=== PATIENT | female | born 1950 | race Caucasian/White ===

== ENCOUNTER 2021-01-14 09:45 | Emergency (ER) | payer MEDICARE, OTHER ==
[~2021-01-14] VITALS: Ht 162.6 cm; Wt 50.0 kg
[~2021-01-14 09:45] MED LIST: ACCUPRIL5 MG PO; ALORA0.1 MG TD; FOSAMAX PLUS PO; NAPROSYN500 MG PO
[2021-01-14 10:08] LABS: GFR > 60 ML/MIN (>=60 (CALC)); GFR FOR AFR.AMER. > 60 ML/MIN (>=60 (CALC))
[2021-01-14 10:14] LABS: HEMATOCRIT 42.2 % (37.0-47.0); HEMOGLOBIN 13.6 g/dl (12.0-16.0); IMMATURE GRANULOCYTES 0.1 % (0.0-5.0); MEAN CELL VOLUME 86.8 fL CALC (80.0-100.0); MEAN CORPUSCULAR HGB CONC 32.2 g/dL CAL (32.0-36.0); NEUT# 4.66 thou/uL (2.00-7.15); RED BLOOD COUNT 4.86 mill/uL (4.20-5.60); RED CELL DISTRI WIDTH 16.8 % (11.5-15.5)
[2021-01-14 10:27] LABS: ALKALINE PHOSPHATASE 94 u/l (38-126); ANION GAP 10 (6-22 (CALC)); BILIRUBIN, TOTAL 0.6 mg/dL (0.0-1.4); BUN 18 mg/dL (8-23); BUN/CREATININE RATIO 24 (12-20 (CALC)); CARBON DIOXIDE 25 mmol/l (22-30); CHLORIDE 105 mmol/l (95-108); CREATININE 0.8 mg/dL (0.5-1.0); GFR > 60 ML/MIN (>=60 (CALC)); GFR FOR AFR.AMER. > 60 ML/MIN (>=60 (CALC)); POTASSIUM 4.4 mmol/l (3.5-5.1); SGOT/AST 22 u/l (9-36); SODIUM 136 mmol/l (137-146); TOTAL PROTEIN 7.4 g/dL (6.3-8.2)
[2021-01-14 11:39] VITALS: BP 152/75
== END 2021-01-14 11:53 | disposition left against medical advice (07) ==
LOC: ED 09:45 → ED-I 11:17 → ED 11:53
PROVIDERS: Family Medicine
DX: R07.9 Chest pain, unspecified (principal); U07.1 COVID-19; Z91.19 Patient's noncompliance with other medical treatment and regimen
CPT/HCPCS: Q9967

== ENCOUNTER 2022-04-01 10:21 | Day surgery (SDC) | payer MEDICARE, OTHER ==
[~2022-04-01 10:21] MED LIST changes: +ALLEGRA ALLERGY60 MG PO; +ATORVASTATIN CA10 MG PO; +BIOTIN10 M1 PO; +SINGULAIR10 MG PO
[2022-04-01 14:37] VITALS: BP 169/86
== END 2022-04-01 14:45 | disposition home or self-care (01) ==
LOC: ENDO 10:21 → ORM 14:10 → ENDO 14:45 → ORM 15:30
PROVIDERS: ATTEND Internal Medicine Gastroenterology
PROC: 0DBM8ZX Excision of Descending Colon, Via Natural or Artificial Opening Endoscopic, Diagnostic (ICD-10-PCS; principal; 2022-04-01)
PROC: 0DB98ZX Excision of Duodenum, Via Natural or Artificial Opening Endoscopic, Diagnostic (ICD-10-PCS; 2022-04-01)
PROC: 0DB78ZX Excision of Stomach, Pylorus, Via Natural or Artificial Opening Endoscopic, Diagnostic (ICD-10-PCS; 2022-04-01)
PROC: 0DB48ZX Excision of Esophagogastric Junction, Via Natural or Artificial Opening Endoscopic, Diagnostic (ICD-10-PCS; 2022-04-01)
DX: K62.5 Hemorrhage of anus and rectum (principal); K57.30 Diverticulosis of large intestine without perforation or abscess without bleeding; K63.5 Polyp of colon; K64.8 Other hemorrhoids; K44.9 Diaphragmatic hernia without obstruction or gangrene; K21.00 Gastro-esophageal reflux disease with esophagitis, without bleeding

== ENCOUNTER 2022-05-01 09:35 | Inpatient (IN) | payer MEDICARE, OTHER ==
[2022-05-01] VITALS (118 sets, daily range): BP systolic 95–202; BP diastolic 52–96
[~2022-05-01] VITALS: Ht 162.6 cm; Wt 56.8 kg
[2022-05-01 10:09] LABS: BASO% 0.6 % (0-3); IMMATURE GRANULOCYTES 0.1 % (0.0-5.0); LYMPH% 25.5 % (15-41); MEAN CELL VOLUME 90.9 fL CALC (80.0-100.0); MEAN CORPUSCULAR HGB 30.4 pG CALC (26.0-32.0); MEAN CORPUSCULAR HGB CONC 33.4 g/dL CAL (32.0-36.0); MONO% 8.5 % (2-13); NEUT# 4.61 thou/uL (2.00-7.15); NEUT% 64.3 % (42-76); RED BLOOD COUNT 3.75 mill/uL (4.20-5.60)
[2022-05-01 10:11] LABS: HEMATOCRIT 34.1 % (37.0-47.0); HEMOGLOBIN 11.4 g/dl (12.0-16.0)
[2022-05-01 10:17] LABS: PROTHROMBIN TIME 9.6 SECONDS (9.0-12.5)
[2022-05-01 10:21] LABS: ALBUMIN 4.1 g/dL (3.2-5.0); ALKALINE PHOSPHATASE 74 u/l (38-126); ANION GAP 10 (6-22 (CALC)); BILIRUBIN, TOTAL 0.4 mg/dL (0.0-1.4); BUN 21 mg/dL (8-23); BUN/CREATININE RATIO 25 (12-20 (CALC)); CARBON DIOXIDE 24 mmol/l (22-30); CHLORIDE 107 mmol/l (95-108); CREATININE 0.9 mg/dL (0.5-1.0); GFR FOR AFR.AMER. > 60 ML/MIN (>=60 (CALC)); GFR OTHER RACES > 60 ML/MIN (>=60 (CALC)); POTASSIUM 4.5 mmol/l (3.5-5.1); SGOT/AST 29 u/l (9-36); SODIUM 136 mmol/l (137-146); TOTAL PROTEIN 7.1 g/dL (6.3-8.2)
[2022-05-01 11:52] LABS: URINE BILIRUBIN - DIPSTICK NEGATIVE (NEGATIVE); URINE BLOOD DIPSTICK NEGATIVE (NEGATIVE); URINE GLUCOSE - DIPSTICK NEGATIVE (NEGATIVE); URINE KETONE NEGATIVE (NEGATIVE); URINE LEUK ESTERASE NEGATIVE (NEGATIVE); URINE PH 7.5 (4.5-8.0); URINE PROTEIN - DIPSTICK NEGATIVE (NEG-TRACE); URINE SPECIFIC GRAVITY <=1.005; URINE UROBILINOGEN - DIPSTICK 0.2 E.U./dL (0.2)
[2022-05-01 11:54] LABS: URINE COLOR STRAW; URINE NITRITE - DIPSTICK NEGATIVE (Negative)
[2022-05-02] VITALS (15 sets, daily range): BP systolic 93–146; BP diastolic 45–66
[2022-05-02 13:46] LABS: BASO% 0.3 % (0-3); EOS% 0.9 % (0-8); HEMATOCRIT 34.3 % (37.0-47.0); HEMOGLOBIN 11.2 g/dl (12.0-16.0); IMMATURE GRANULOCYTES 0.1 % (0.0-5.0); LYMPH% 22.3 % (15-41); MEAN CELL VOLUME 90.7 fL CALC (80.0-100.0); MEAN CORPUSCULAR HGB 29.6 pG CALC (26.0-32.0); MEAN CORPUSCULAR HGB CONC 32.7 g/dL CAL (32.0-36.0); MONO% 7.4 % (2-13); NEUT# 4.74 thou/uL (2.00-7.15); RED BLOOD COUNT 3.78 mill/uL (4.20-5.60); RED CELL DISTRI WIDTH 15.2 % (11.5-15.5)
[2022-05-02 14:03] LABS: ALBUMIN 3.6 g/dL (3.2-5.0); ALKALINE PHOSPHATASE 60 u/l (38-126); ANION GAP 10 (6-22 (CALC)); BILIRUBIN, TOTAL 0.2 mg/dL (0.0-1.4); BUN 15 mg/dL (8-23); BUN/CREATININE RATIO 17 (12-20 (CALC)); CARBON DIOXIDE 23 mmol/l (22-30); CHLORIDE 109 mmol/l (95-108); CREATININE 0.9 mg/dL (0.5-1.0); GFR FOR AFR.AMER. > 60 ML/MIN (>=60 (CALC)); GFR OTHER RACES > 60 ML/MIN (>=60 (CALC)); POTASSIUM 4.2 mmol/l (3.5-5.1); SGOT/AST 29 u/l (9-36); SODIUM 138 mmol/l (137-146); TOTAL PROTEIN 6.3 g/dL (6.3-8.2)
[2022-05-03] VITALS (8 sets, daily range): BP systolic 96–149; BP diastolic 41–74
[2022-05-03 05:55] LABS: BASO% 0.7 % (0-3); EOS% 2.5 % (0-8); HEMATOCRIT 32.4 % (37.0-47.0); HEMOGLOBIN 11.4 g/dl (12.0-16.0); IMMATURE GRANULOCYTES 0.2 % (0.0-5.0); LYMPH% 30.2 % (15-41); MEAN CELL VOLUME 90.3 fL CALC (80.0-100.0); MEAN CORPUSCULAR HGB 31.8 pG CALC (26.0-32.0); MEAN CORPUSCULAR HGB CONC 35.2 g/dL CAL (32.0-36.0); MONO% 11.6 % (2-13); NEUT# 3.13 thou/uL (2.00-7.15); NEUT% 54.8 % (42-76); RED BLOOD COUNT 3.59 mill/uL (4.20-5.60); RED CELL DISTRI WIDTH 15.2 % (11.5-15.5)
[2022-05-03 06:02] LABS: ALBUMIN 3.3 g/dL (3.2-5.0); ALKALINE PHOSPHATASE 52 u/l (38-126); ANION GAP 7 (6-22 (CALC)); BILIRUBIN, TOTAL 0.2 mg/dL (0.0-1.4); BUN 16 mg/dL (8-23); BUN/CREATININE RATIO 22 (12-20 (CALC)); CARBON DIOXIDE 25 mmol/l (22-30); CHLORIDE 109 mmol/l (95-108); CREATININE 0.7 mg/dL (0.5-1.0); GFR FOR AFR.AMER. > 60 ML/MIN (>=60 (CALC)); GFR OTHER RACES > 60 ML/MIN (>=60 (CALC)); POTASSIUM 4.2 mmol/l (3.5-5.1); SGOT/AST 23 u/l (9-36); SODIUM 137 mmol/l (137-146); TOTAL PROTEIN 6.1 g/dL (6.3-8.2)
[2022-05-04] VITALS (8 sets, daily range): BP systolic 107–166; BP diastolic 34–68
[2022-05-04] MEDS ORDERED: ASPIRIN81 MG PO (12:01)
[2022-05-04] MEDS ORDERED: PLAVIX75 MG PO (12:01)
[2022-05-04] MEDS ORDERED: LEXAPRO10 MG PO (12:01)
[2022-05-04] MEDS ORDERED: ATORVASTATIN CA40 MG PO (12:01)
[2022-05-04] MEDS ORDERED: LORAZEPAM0.5 MG PO (12:02)
[2022-05-04] MEDS ORDERED: PEPCID20 MG PO (12:02)
[2022-05-05 00:08] VITALS: BP 117/49
[2022-05-05 04:00] VITALS: BP 139/62
[2022-05-05 04:52] VITALS: BP 139/62
[2022-05-05 05:06] LABS: BASO% 0.7 % (0-3); EOS% 2.2 % (0-8); HEMATOCRIT 32.4 % (37.0-47.0); HEMOGLOBIN 10.6 g/dl (12.0-16.0); LYMPH% 31.4 % (15-41); MEAN CELL VOLUME 91.5 fL CALC (80.0-100.0); MEAN CORPUSCULAR HGB 29.9 pG CALC (26.0-32.0); MEAN CORPUSCULAR HGB CONC 32.7 g/dL CAL (32.0-36.0); MONO% 10.8 % (2-13); NEUT# 3.04 thou/uL (2.00-7.15); NEUT% 54.9 % (42-76); RED BLOOD COUNT 3.54 mill/uL (4.20-5.60)
[2022-05-05 05:17] LABS: ALBUMIN 3.2 g/dL (3.2-5.0); ALKALINE PHOSPHATASE 48 u/l (38-126); ANION GAP 8 (6-22 (CALC)); BUN 16 mg/dL (8-23); BUN/CREATININE RATIO 20 (12-20 (CALC)); CARBON DIOXIDE 24 mmol/l (22-30); CHLORIDE 109 mmol/l (95-108); CREATININE 0.8 mg/dL (0.5-1.0); GFR FOR AFR.AMER. > 60 ML/MIN (>=60 (CALC)); GFR OTHER RACES > 60 ML/MIN (>=60 (CALC)); POTASSIUM 4.3 mmol/l (3.5-5.1); SGOT/AST 25 u/l (9-36); SODIUM 136 mmol/l (137-146); TOTAL PROTEIN 5.9 g/dL (6.3-8.2)
[2022-05-05 05:18] LABS: BILIRUBIN, TOTAL 0.3 mg/dL (0.0-1.4)
[2022-05-05 06:49] VITALS: BP 137/62
== END 2022-05-05 12:30 | DRG 62 ==
LOC: ED 09:35 → ED-I 11:01 → ED 12:25 → ICU 12:26 → MS2 05-03 14:56
PROVIDERS: Family Medicine; Internal Medicine; Nurse Practitioner Family; ADMIT Internal Medicine; ATTEND Internal Medicine
DX: I63.9 Cerebral infarction, unspecified (principal); G81.94 Hemiplegia, unspecified affecting left nondominant side; R29.709 NIHSS score 9; R47.1 Dysarthria and anarthria; R47.01 Aphasia; R29.810 Facial weakness; R20.8 Other disturbances of skin sensation; R41.0 Disorientation, unspecified; R09.89 Other specified symptoms and signs involving the circulatory and respiratory systems; F32.A Depression, unspecified
CPT/HCPCS: J3101; Q9967

== ENCOUNTER 2022-05-22 03:01 | Observation (INO) | payer MEDICARE, OTHER ==
[2022-05-22] VITALS (9 sets, daily range): BP systolic 108–145; BP diastolic 40–79
[~2022-05-22] VITALS: Ht 162.6 cm; Wt 57.0 kg
[~2022-05-22 03:01] MED LIST changes: +ASPIRIN81 MG PO; +ATORVASTATIN CA40 MG PO; +LEXAPRO10 MG PO; +LORAZEPAM0.5 MG PO; +PEPCID20 MG PO; +PLAVIX75 MG PO
--- NOTE | 2022-05-22 04:30 | NUR ---
PATIENT ARRIVED VIA EMS. PROVIDER AWARE OF STATUS.
[2022-05-22 05:01] LABS: BASO% 0.2 % (0-3); EOS% 0.2 % (0-8); HEMATOCRIT 35.8 % (37.0-47.0); HEMOGLOBIN 11.2 g/dl (12.0-16.0); IMMATURE GRANULOCYTES 0.3 % (0.0-5.0); LYMPH% 7.6 % (15-41); MEAN CELL VOLUME 89.3 fL CALC (80.0-100.0); MEAN CORPUSCULAR HGB 27.9 pG CALC (26.0-32.0); MEAN CORPUSCULAR HGB CONC 31.3 g/dL CAL (32.0-36.0); MONO% 5.4 % (2-13); NEUT# 10.77 thou/uL (2.00-7.15); NEUT% 86.3 % (42-76); RED BLOOD COUNT 4.01 mill/uL (4.20-5.60); RED CELL DISTRI WIDTH 13.9 % (11.5-15.5)
[2022-05-22 05:16] LABS: ALBUMIN 4.3 g/dL (3.2-5.0); ALKALINE PHOSPHATASE 58 u/l (38-126); ANION GAP 8 (6-22 (CALC)); BILIRUBIN, TOTAL 0.1 mg/dL (0.02-1.3); BUN 16 mg/dL (8-23); BUN/CREATININE RATIO 20 (12-20 (CALC)); CARBON DIOXIDE 28 mmol/l (22-30); CHLORIDE 107 mmol/l (95-108); CREATININE 0.8 mg/dL (0.5-1.0); GFR FOR AFR.AMER. > 60 ML/MIN (>=60 (CALC)); GFR OTHER RACES > 60 ML/MIN (>=60 (CALC)); POTASSIUM 4.3 mmol/l (3.5-5.1); SGOT/AST 44 u/l (9-36); SODIUM 139 mmol/l (137-146); TOTAL PROTEIN 7.2 g/dL (6.3-8.2)
--- NOTE | 2022-05-22 05:31 | NUR ---
PATIENT PENDING ADMISSION.
[2022-05-22] MEDS ORDERED: TELMISARTAN40 MG PO (05:50)
[2022-05-22] MEDS ORDERED: TRAZODONE50 MG PO (05:50)
--- NOTE | 2022-05-22 06:37 | NUR ---
REPORT GIVEN TO MS. PATIENT TAKEN TO ROOM 280.
--- NOTE | 2022-05-22 06:45 | NUR ---
RECEIVED PATIENT FROM ED VIA STRETCHER @ [id number]. BEDSIDE REPORT RECEIVED FROM ED RN. PT IS A&0X3. PT IS ABLE TO VERBALIZED NEEDS. PT ASKED FOR CLARK Solis RN TO BE NOTIFIED THAT SHE WAS ADMITTED, SHE HAD 2 STROKES WITHIN THE PAST MONTH WITH TPA ADMINISTERED. PT COMPLAINS OF PAIN TO THE LEFT RIBS, HAS 5TH RIB FRACTURED, REQUESTING PAIN MEDS, WITH PAIN LEVEL AT A 9. ADMITTED FOR FALL AT HOME, LACERATION TO FORHEAD ABOVE RIGHT EYE AND RIB FRACTURED. PT IS ON ROOM AIR, BREATHING EVEN AND UNLABORED. TELEMETRY IN PLACE, MONITORED BY ED. TRANSFERED PT TO BED, POSITIONED IN LOW SEMI-GANDARA'S POSITION. ORIENTED PT TO ROOM AND CALL LIGHT. EDUCATION PROVIDED ON FALL PREVENTION. PT VERBALIZED UNDERSTANDING. CALL LIGHT AND BEDSIDE TABLE WITHIN REACH. SAFETY PRECAUTIONS IN PLACE.
--- NOTE | 2022-05-22 09:05 | NUR ---
verbal order received for pain medication at this time. faxed to pharmacy.
--- NOTE | 2022-05-22 12:07 | NUR ---
PT RESTING IN BED. NO APPARENT DISTRESS NOTED. CALL LIGHT WITHIN REACH. WILL CONTINUE TO MONITOR.
[2022-05-22 13:12] LABS: URINE BILIRUBIN - DIPSTICK NEGATIVE (NEGATIVE); URINE BLOOD DIPSTICK LARGE (NEGATIVE); URINE COLOR YELLOW; URINE GLUCOSE - DIPSTICK NEGATIVE (NEGATIVE); URINE KETONE NEGATIVE (NEGATIVE); URINE LEUK ESTERASE NEGATIVE (NEGATIVE); URINE PROTEIN - DIPSTICK NEGATIVE (NEG-TRACE); URINE SPECIFIC GRAVITY 1.015; URINE UROBILINOGEN - DIPSTICK 0.2 E.U./dL (0.2)
[2022-05-22 13:28] LABS: URINE NITRITE - DIPSTICK NEGATIVE (Negative)
[2022-05-22 13:37] LABS: URINE BACTERIA FEW hpf; URINE RBC 50-100 RBC/hpf (0-5); URINE SQUAMOUS EPITHELIAL CELL FEW EPI/hpf (0-FEW)
--- NOTE | 2022-05-22 16:00 | NUR ---
ORTHOSTATIC VS OBTAINED. NOTIFIED [facility] AT THIS TIME.
--- NOTE | 2022-05-22 22:00 | NUR ---
ASSISTED PATIENT IN THE BEDSIDE COMMODE. INSTRUCTED NOT TO GET UP ON HER OWN. BED ALRM IN PLACED.
--- NOTE | 2022-05-23 | NUR ---
RESTING IN BED. SELF TURNED. NO S/S OF DISTRESS NOTED. BED ALARM REMAIN IN PLACED.
[2022-05-23 02:11] VITALS: BP 153/71
[2022-05-23 04:19] VITALS: BP 124/62
[2022-05-23 04:58] VITALS: BP 134/69
[2022-05-23 05:00] VITALS: BP 139/75; BP 143/79
[2022-05-23 06:05] LABS: BASO% 0.4 % (0-3); EOS% 0.8 % (0-8); HEMATOCRIT 36.4 % (37.0-47.0); HEMOGLOBIN 11.4 g/dl (12.0-16.0); IMMATURE GRANULOCYTES 0.1 % (0.0-5.0); LYMPH% 28.7 % (15-41); MEAN CELL VOLUME 91.2 fL CALC (80.0-100.0); MEAN CORPUSCULAR HGB 28.6 pG CALC (26.0-32.0); MEAN CORPUSCULAR HGB CONC 31.3 g/dL CAL (32.0-36.0); MONO% 9.9 % (2-13); NEUT# 6.03 thou/uL (2.00-7.15); NEUT% 60.1 % (42-76); RED BLOOD COUNT 3.99 mill/uL (4.20-5.60); RED CELL DISTRI WIDTH 14.2 % (11.5-15.5)
[2022-05-23 06:37] LABS: ALBUMIN 3.9 g/dL (3.2-5.0); ALKALINE PHOSPHATASE 60 u/l (38-126); ANION GAP 12 (6-22 (CALC)); BILIRUBIN, TOTAL 0.4 mg/dL (0.02-1.3); BUN 12 mg/dL (8-23); BUN/CREATININE RATIO 18 (12-20 (CALC)); CARBON DIOXIDE 22 mmol/l (22-30); CHLORIDE 109 mmol/l (95-108); CREATININE 0.7 mg/dL (0.5-1.0); GFR FOR AFR.AMER. > 60 ML/MIN (>=60 (CALC)); GFR OTHER RACES > 60 ML/MIN (>=60 (CALC)); POTASSIUM 3.7 mmol/l (3.5-5.1); SGOT/AST 34 u/l (9-36); SODIUM 139 mmol/l (137-146); TOTAL PROTEIN 6.7 g/dL (6.3-8.2)
[2022-05-23 07:00] VITALS: BP 154/78
--- NOTE | 2022-05-23 07:43 | NUR ---
VITAL SIGNS STABLE. PT IN PAIN, STATES SHE WANTS PAIN MED A LITTLE WEAKER THAN MORPHINE. DR DAWKINS NOTIFIED. HE PUT IN ORDER FOR PRN LORBAB. WAITING FOR PHARMACY TO PUT IN ORDER.
[2022-05-23] MEDS ORDERED: LORTAB5 PO (11:25)
[2022-05-23 12:12] VITALS: BP 146/70
--- NOTE | 2022-05-23 13:41 | NUR ---
DC INSTRUCTIONS GIVEN. MEDICATION INSTRUCTIONS GIVEN. ICS GIVEN. IV DCED. TELE DCED. PT TAKEN TO CAR IN WC BY ME.
== END 2022-05-23 13:30 | disposition home health service (06) ==
LOC: ED 03:01 → ED-I 04:35 → ED 05:31 → MS2 05:32
PROVIDERS: Emergency Medicine; Nurse Practitioner Family; ADMIT Internal Medicine; ATTEND Internal Medicine
PROC: 0HQ1XZZ Repair Face Skin, External Approach (ICD-10-PCS; principal; 2022-05-22)
DX: R55 Syncope and collapse (principal); R42 Dizziness and giddiness; I95.1 Orthostatic hypotension; S01.81XA Laceration without foreign body of other part of head, initial encounter; S22.32XA Fracture of one rib, left side, initial encounter for closed fracture; I10 Essential (primary) hypertension; E78.5 Hyperlipidemia, unspecified; W19.XXXA Unspecified fall, initial encounter; Y92.009 Unspecified place in unspecified non-institutional (private) residence as the place of occurrence of the external cause; Z86.73 Personal history of transient ischemic attack (TIA), and cerebral infarction without residual deficits
CPT/HCPCS: J1650

== ENCOUNTER 2022-11-02 11:20 | Observation (INO) | payer MEDICARE, OTHER ==
[~2022-11-02] VITALS: Ht 162.6 cm; Wt 61.7 kg
[2022-11-02] VITALS (33 sets, daily range): BP systolic 114–166; BP diastolic 43–82
[~2022-11-02 11:20] MED LIST changes: +COQ-10100 MG PO; +COZAAR25 MG PO; +ESTROVE1 PO; +LORTAB5 PO; +ROPINIROLE0.5 MG PO; +TELMISARTAN40 MG PO; +TRAZODONE50 MG PO; +VITAMIN B COMPL1 CAP; +ZYRTEC10 M3 PO
[2022-11-02 11:55] LABS: ALBUMIN 4.5 g/dL (3.2-5.0); ALKALINE PHOSPHATASE 101 u/l (38-126); ANION GAP 13 (6-22 (CALC)); BUN 12 mg/dL (8-23); BUN/CREATININE RATIO 14 (12-20 (CALC)); CARBON DIOXIDE 24 mmol/l (22-30); CHLORIDE 102 mmol/l (95-108); CREATININE 0.8 mg/dL (0.5-1.0); GFR FOR AFR.AMER. > 60 ML/MIN (>=60 (CALC)); GFR OTHER RACES > 60 ML/MIN (>=60 (CALC)); POTASSIUM 4.5 mmol/l (3.5-5.1); SGOT/AST 38 u/l (9-36); SODIUM 135 mmol/l (137-146); TOTAL PROTEIN 7.4 g/dL (6.3-8.2)
[2022-11-02 11:56] LABS: BILIRUBIN, TOTAL 0.4 mg/dL (0.02-1.3)
[2022-11-02 11:57] LABS: BASO% 0.7 % (0-3); EOS% 2.2 % (0-8); HEMATOCRIT 44.4 % (37.0-47.0); IMMATURE GRANULOCYTES 0.1 % (0.0-5.0); LYMPH% 30.6 % (15-41); MEAN CELL VOLUME 90.6 fL CALC (80.0-100.0); MEAN CORPUSCULAR HGB 28.6 pG CALC (26.0-32.0); MEAN CORPUSCULAR HGB CONC 31.5 g/dL CAL (32.0-36.0); MONO% 11.5 % (2-13); NEUT# 3.97 thou/uL (2.00-7.15); NEUT% 54.9 % (42-76); RED BLOOD COUNT 4.9 mill/uL (4.20-5.60); RED CELL DISTRI WIDTH 14.8 % (11.5-15.5)
[2022-11-02 12:01] LABS: PROTHROMBIN TIME 9.9 SECONDS (9.0-12.5)
[2022-11-02] MEDS ORDERED: ESCITALOPRAM OX10 MG PO (13:12)
[2022-11-02] MEDS ORDERED: RIZATRIPTAN BEN10 MG (13:12)
[2022-11-02] MEDS ORDERED: LEXAPRO10 MG PO (15:29)
[2022-11-02] MEDS ORDERED: ATORVASTATIN CA10 MG PO (15:30)
[2022-11-02] MEDS ORDERED: ZYRTEC10 MG PO (15:30)
[2022-11-03] VITALS (27 sets, daily range): BP systolic 82–148; BP diastolic 34–93
[2022-11-03 05:38] LABS: BASO% 0.7 % (0-3); EOS% 4.2 % (0-8); HEMATOCRIT 43.2 % (37.0-47.0); HEMOGLOBIN 13.8 g/dl (12.0-16.0); LYMPH% 27.6 % (15-41); MEAN CELL VOLUME 90.2 fL CALC (80.0-100.0); MEAN CORPUSCULAR HGB 28.8 pG CALC (26.0-32.0); MEAN CORPUSCULAR HGB CONC 31.9 g/dL CAL (32.0-36.0); MONO% 11.5 % (2-13); NEUT# 3.17 thou/uL (2.00-7.15); RED BLOOD COUNT 4.79 mill/uL (4.20-5.60); RED CELL DISTRI WIDTH 14.7 % (11.5-15.5)
[2022-11-03 05:43] LABS: ALBUMIN 3.7 g/dL (3.2-5.0); ALKALINE PHOSPHATASE 68 u/l (38-126); ANION GAP 10 (6-22 (CALC)); BILIRUBIN, TOTAL 0.5 mg/dL (0.02-1.3); BUN 13 mg/dL (8-23); BUN/CREATININE RATIO 17 (12-20 (CALC)); CARBON DIOXIDE 26 mmol/l (22-30); CHLORIDE 106 mmol/l (95-108); CREATININE 0.8 mg/dL (0.5-1.0); GFR FOR AFR.AMER. > 60 ML/MIN (>=60 (CALC)); GFR OTHER RACES > 60 ML/MIN (>=60 (CALC)); POTASSIUM 4.4 mmol/l (3.5-5.1); SGOT/AST 28 u/l (9-36); SODIUM 138 mmol/l (137-146)
== END 2022-11-03 18:20 | disposition home health service (06) ==
LOC: ED 11:20 → ICU 13:43
PROVIDERS: Family Medicine; ADMIT Internal Medicine; ATTEND Internal Medicine
DX: R53.1 Weakness (principal); R56.9 Unspecified convulsions; I69.954 Hemiplegia and hemiparesis following unspecified cerebrovascular disease affecting left non-dominant side; R00.1 Bradycardia, unspecified; I10 Essential (primary) hypertension; E78.5 Hyperlipidemia, unspecified; F32.A Depression, unspecified; G43.109 Migraine with aura, not intractable, without status migrainosus; F41.9 Anxiety disorder, unspecified; G25.81 Restless legs syndrome; Z79.82 Long term (current) use of aspirin
CPT/HCPCS: J2060; Q9967

== ENCOUNTER 2022-11-27 10:35 | Observation (INO) | payer MEDICARE, OTHER ==
[~2022-11-27] VITALS: Ht 162.6 cm; Wt 59.0 kg
[2022-11-27] VITALS (16 sets, daily range): BP systolic 136–171; BP diastolic 68–87
[~2022-11-27 10:35] MED LIST changes: +ESCITALOPRAM OX10 MG PO; +RIZATRIPTAN BEN10 MG; +ZYRTEC10 MG PO
[2022-11-27 11:01] LABS: BASO% 0.6 % (0-3); EOS% 1.4 % (0-8); HEMOGLOBIN 14.1 g/dl (12.0-16.0); IMMATURE GRANULOCYTES 0.1 % (0.0-5.0); LYMPH% 28.5 % (15-41); MEAN CELL VOLUME 92.2 fL CALC (80.0-100.0); MEAN CORPUSCULAR HGB 29.6 pG CALC (26.0-32.0); MONO% 10.8 % (2-13); NEUT# 4.21 thou/uL (2.00-7.15); NEUT% 58.6 % (42-76); RED BLOOD COUNT 4.77 mill/uL (4.20-5.60); RED CELL DISTRI WIDTH 14.1 % (11.5-15.5)
[2022-11-27 11:30] LABS: ALKALINE PHOSPHATASE 86 u/l (38-126); ANION GAP 13 (6-22 (CALC)); BILIRUBIN, TOTAL 0.7 mg/dL (0.02-1.3); BUN 14 mg/dL (8-23); BUN/CREATININE RATIO 19 (12-20 (CALC)); CALCULATED LDLCHOLESTEROL 91 mg/dL (62-129 (CALC)); CARBON DIOXIDE 26 mmol/l (22-30); CHLORIDE 103 mmol/l (95-108); CHOLESTEROL HDL RATIO 2.2 (<4.4 (CALC)); CREATININE 0.7 mg/dL (0.5-1.0); GFR FOR AFR.AMER. > 60 ML/MIN (>=60 (CALC)); GFR OTHER RACES > 60 ML/MIN (>=60 (CALC)); HDL CHOLESTEROL 93 mg/dL (39.0-59.0); POTASSIUM 4.8 mmol/l (3.5-5.1); SGOT/AST 29 u/l (9-36); SODIUM 137 mmol/l (137-146); TOTAL CHOLESTEROL 205 mg/dl (0-199); TOTAL TRIGLYCERIDES 109 mg/dl (0-149); VLDL CHOLESTROL 22 mg/dl (0-48 (CALC))
[2022-11-27 11:31] LABS: PROTHROMBIN TIME 9.9 SECONDS (9.0-12.5)
[2022-11-27 11:35] LABS: ALBUMIN 4.7 g/dL (3.2-5.0); TOTAL PROTEIN 7.4 g/dL (6.3-8.2)
[2022-11-27] MEDS ORDERED: QULIPTA60 MG PO (13:27)
[2022-11-27] MEDS ORDERED: ATORVASTATIN CA40 MG PO (13:28)
[2022-11-27] MEDS ORDERED: ESCITALOPRAM OX20 MG PO (13:35)
[2022-11-27] MEDS ORDERED: ALLEGRA ALLERGY60 MG PO (13:37)
[2022-11-28] VITALS (8 sets, daily range): BP systolic 101–130; BP diastolic 61–73
[2022-11-28 05:45] LABS: HEMATOCRIT 42.7 % (37.0-47.0); HEMOGLOBIN 13.8 g/dl (12.0-16.0); MEAN CELL VOLUME 92.2 fL CALC (80.0-100.0); MEAN CORPUSCULAR HGB 29.8 pG CALC (26.0-32.0); MEAN CORPUSCULAR HGB CONC 32.3 g/dL CAL (32.0-36.0); RED BLOOD COUNT 4.63 mill/uL (4.20-5.60); RED CELL DISTRI WIDTH 14.1 % (11.5-15.5)
[2022-11-28 05:47] LABS: ANION GAP 12 (6-22 (CALC)); BUN 14 mg/dL (8-23); BUN/CREATININE RATIO 18 (12-20 (CALC)); CARBON DIOXIDE 25 mmol/l (22-30); CHLORIDE 104 mmol/l (95-108); CREATININE 0.8 mg/dL (0.5-1.0); GFR FOR AFR.AMER. > 60 ML/MIN (>=60 (CALC)); GFR OTHER RACES > 60 ML/MIN (>=60 (CALC)); POTASSIUM 4.4 mmol/l (3.5-5.1); SODIUM 136 mmol/l (137-146)
[2022-11-29] VITALS (11 sets, daily range): BP systolic 108–133; BP diastolic 57–68
[2022-11-29 05:10] LABS: BASO% 0.5 % (0-3); EOS% 1.7 % (0-8); HEMATOCRIT 40.2 % (37.0-47.0); IMMATURE GRANULOCYTES 0.3 % (0.0-5.0); LYMPH% 24.8 % (15-41); MEAN CELL VOLUME 92.8 fL CALC (80.0-100.0); MEAN CORPUSCULAR HGB CONC 32.3 g/dL CAL (32.0-36.0); MONO% 9.6 % (2-13); NEUT# 4.12 thou/uL (2.00-7.15); NEUT% 63.1 % (42-76); RED BLOOD COUNT 4.33 mill/uL (4.20-5.60); RED CELL DISTRI WIDTH 14.3 % (11.5-15.5)
[2022-11-29 05:22] LABS: ALKALINE PHOSPHATASE 60 u/l (38-126); ANION GAP 10 (6-22 (CALC)); BILIRUBIN, TOTAL 0.7 mg/dL (0.02-1.3); BUN 11 mg/dL (8-23); BUN/CREATININE RATIO 14 (12-20 (CALC)); CARBON DIOXIDE 28 mmol/l (22-30); CHLORIDE 104 mmol/l (95-108); CREATININE 0.8 mg/dL (0.5-1.0); GFR FOR AFR.AMER. > 60 ML/MIN (>=60 (CALC)); GFR OTHER RACES > 60 ML/MIN (>=60 (CALC)); POTASSIUM 4.3 mmol/l (3.5-5.1); SGOT/AST 23 u/l (9-36); SODIUM 137 mmol/l (137-146)
[2022-11-29 05:24] LABS: URINE BILIRUBIN - DIPSTICK Negative (NEGATIVE); URINE BLOOD DIPSTICK Negative (NEGATIVE); URINE COLOR Yellow; URINE GLUCOSE - DIPSTICK Negative (NEGATIVE); URINE KETONE Negative (NEGATIVE); URINE LEUK ESTERASE Negative (NEGATIVE); URINE NITRITE - DIPSTICK Negative (Negative); URINE PH 7.5 (4.5-8.0); URINE PROTEIN - DIPSTICK Negative (NEG-TRACE); URINE UROBILINOGEN - DIPSTICK 0.2 E.U./dL (0.2)
[2022-11-29 05:27] LABS: ALBUMIN 3.7 g/dL (3.2-5.0)
[2022-11-30 03:43] VITALS: BP 126/57
[2022-11-30 05:18] LABS: BASO% 0.5 % (0-3); EOS% 2.1 % (0-8); HEMATOCRIT 38.7 % (37.0-47.0); HEMOGLOBIN 12.6 g/dl (12.0-16.0); IMMATURE GRANULOCYTES 0.2 % (0.0-5.0); LYMPH% 27.4 % (15-41); MEAN CELL VOLUME 93.9 fL CALC (80.0-100.0); MEAN CORPUSCULAR HGB 30.6 pG CALC (26.0-32.0); MEAN CORPUSCULAR HGB CONC 32.6 g/dL CAL (32.0-36.0); NEUT# 3.84 thou/uL (2.00-7.15); NEUT% 58.8 % (42-76); RED BLOOD COUNT 4.12 mill/uL (4.20-5.60)
[2022-11-30 05:25] VITALS: BP 126/57
[2022-11-30 05:35] LABS: ALBUMIN 3.5 g/dL (3.2-5.0); ALKALINE PHOSPHATASE 53 u/l (38-126); ANION GAP 7 (6-22 (CALC)); BILIRUBIN, TOTAL 0.5 mg/dL (0.02-1.3); BUN 14 mg/dL (8-23); BUN/CREATININE RATIO 16 (12-20 (CALC)); CARBON DIOXIDE 31 mmol/l (22-30); CHLORIDE 104 mmol/l (95-108); CREATININE 0.9 mg/dL (0.5-1.0); GFR FOR AFR.AMER. > 60 ML/MIN (>=60 (CALC)); GFR OTHER RACES > 60 ML/MIN (>=60 (CALC)); POTASSIUM 4.3 mmol/l (3.5-5.1); SGOT/AST 32 u/l (9-36); SODIUM 137 mmol/l (137-146)
[2022-11-30 06:35] VITALS: BP 125/61
[2022-11-30 10:34] VITALS: BP 127/68
[2022-11-30 15:23] VITALS: BP 153/74
== END 2022-11-30 16:20 | disposition home health service (06) ==
LOC: ED 10:35 → ED-I 12:50 → ED 14:33 → MS2 14:34
PROVIDERS: Family Medicine; Nurse Practitioner Family; ADMIT Student in an Organized Health Care Education/Training Program; ATTEND Student in an Organized Health Care Education/Training Program
DX: G43.809 Other migraine, not intractable, without status migrainosus (principal); F44.5 Conversion disorder with seizures or convulsions; I69.354 Hemiplegia and hemiparesis following cerebral infarction affecting left non-dominant side; I10 Essential (primary) hypertension; F43.22 Adjustment disorder with anxiety; E78.5 Hyperlipidemia, unspecified; F32.A Depression, unspecified; Z79.82 Long term (current) use of aspirin; Z79.02 Long term (current) use of antithrombotics/antiplatelets
CPT/HCPCS: J1650; J2060; Q9967

== ENCOUNTER 2023-05-24 22:06 | Emergency (ER) | payer MEDICARE, OTHER ==
[~2023-05-24] VITALS: Ht 162.6 cm; Wt 64.4 kg
[~2023-05-24 22:06] MED LIST changes: +ATORVASTATIN CA20 MG PO; +QULIPTA60 MG PO; +UBRELVY100 MG PO; +VALPROIC ACD250 M1 PO; +VALPROIC ACD250 M3 PO
[2023-05-24 22:41] VITALS: BP 119/71
[2023-05-24 22:55] LABS: BASO% 0.5 % (0-3); EOS% 1.3 % (0-8); IMMATURE GRANULOCYTES 0.2 % (0.0-5.0); MEAN CELL VOLUME 95.7 fL CALC (80.0-100.0); MEAN CORPUSCULAR HGB 30.9 pG CALC (26.0-32.0); MEAN CORPUSCULAR HGB CONC 32.3 g/dL CAL (32.0-36.0); NEUT# 3.2 thou/uL (2.00-7.15); RED BLOOD COUNT 3.92 mill/uL (4.20-5.60); RED CELL DISTRI WIDTH 12.8 % (11.5-15.5)
[2023-05-24 22:56] LABS: HEMATOCRIT 37.5 % (37.0-47.0); HEMOGLOBIN 12.1 g/dl (12.0-16.0)
[2023-05-24 23:00] VITALS: BP 111/63
[2023-05-24 23:11] LABS: ALKALINE PHOSPHATASE 60 u/l (38-126); ANION GAP 13 (6-22 (CALC)); BILIRUBIN, TOTAL 0.3 mg/dL (0.02-1.3); BUN 20 mg/dL (8-23); BUN/CREATININE RATIO 22 (12-20 (CALC)); CARBON DIOXIDE 22 mmol/l (22-30); CHLORIDE 103 mmol/l (95-108); CREATININE 0.9 mg/dL (0.5-1.0); ETHYL ALCOHOL 77 mg/dl (0-30); GFR FOR AFR.AMER. > 60 ML/MIN (>=60 (CALC)); GFR OTHER RACES > 60 ML/MIN (>=60 (CALC)); POTASSIUM 4.1 mmol/l (3.5-5.1); SGOT/AST 37 u/l (9-36); SODIUM 134 mmol/l (137-146); TOTAL PROTEIN 6.3 g/dL (6.3-8.2)
[2023-05-24 23:20] VITALS: BP 118/70
[2023-05-24 23:40] VITALS: BP 110/71
[2023-05-25] VITALS: BP 110/70
[2023-05-25 00:20] VITALS: BP 112/65
[2023-05-25 00:40] VITALS: BP 113/69
[2023-05-25 01:00] VITALS: BP 118/62
[2023-05-25 01:20] VITALS: BP 109/67
[2023-05-25 01:50] VITALS: BP 109/67
[2023-05-25] MEDS ORDERED: BAYER ASPIRIN E81 MG PO (01:50)
[2023-05-25] MEDS ORDERED: NAYZILAM5 MG/0.1 M (01:51)
[2023-05-25] MEDS ORDERED: PLAVIX75 MG PO (01:51)
[2023-05-25 02:04] LABS: URINE BILIRUBIN - DIPSTICK Negative (NEGATIVE); URINE BLOOD DIPSTICK Negative (NEGATIVE); URINE COLOR Yellow; URINE GLUCOSE - DIPSTICK Negative (NEGATIVE); URINE KETONE Trace mg/dL (NEGATIVE); URINE LEUK ESTERASE Negative (NEGATIVE); URINE NITRITE - DIPSTICK Negative (Negative); URINE PH 6.5 (4.5-8.0); URINE PROTEIN - DIPSTICK Negative (NEG-TRACE); URINE UROBILINOGEN - DIPSTICK 0.2 E.U./dL (0.2)
== END 2023-05-25 01:57 | disposition home or self-care (01) ==
LOC: ED 22:06
PROVIDERS: Family Medicine
DX: R56.9 Unspecified convulsions (principal); I10 Essential (primary) hypertension; E78.5 Hyperlipidemia, unspecified; F32.A Depression, unspecified; Z86.73 Personal history of transient ischemic attack (TIA), and cerebral infarction without residual deficits